=== PATIENT | female | born 1960 | race Caucasian/White ===

== ENCOUNTER → 2017-06-18 | Outpatient (CLI) | payer OTHER ==
[2017-06-18 08:31] LABS: HEMATOCRIT 39.9 % (35.0-46.0); MEAN CELL VOLUME 82.2 FL (80.0-100.0); MEAN CORPUSCULAR HEMOGLOBIN 28.6 PG (27.0-34.0); MEAN CORPUSCULAR HGB CONC 34.8 % (32.0-36.0); PLATELET COUNT 302 TH/MM3 (150-450); RED BLOOD COUNT 4.86 MIL/MM3 (4.00-5.30); RED CELL DISTRIBUTION WIDTH 14.3 % (11.6-17.2); REVIEW FLAG FINAL; WHITE BLOOD COUNT 9.1 TH/MM3 (4.0-11.0)
[2017-06-18 08:53] LABS: ALT (GPT) 16 U/L (10-53); ANION GAP 6 MEQ/L (5-15); AST (GOT) 8 U/L (15-37); BICARBONATE 30.1 MEQ/L (21.0-32.0); BLOOD UREA NITROGEN 10 MG/DL (7-18); CHLORIDE 103 MEQ/L (98-107); GLOMERULAR FILTRATION RATE 85 ML/MIN (>89); GLUCOSE,FASTING 101 MG/DL (74-99); POTASSIUM 3.2 MEQ/L (3.5-5.1); SODIUM (NA) 139 MEQ/L (136-145)
[2017-06-18 09:03] LABS: ALKALINE PHOSPHATASE 78 U/L (45-117); TOTAL BILIRUBIN ADULT 0.5 MG/DL (0.2-1.0)
== END ==
LOC: CLAB 07:39
PROVIDERS: ATTEND Family Medicine
DX: Z00.00 Encounter for general adult medical examination without abnormal findings (principal)
CPT/HCPCS: 36415; 80053; 84443; 85027